=== PATIENT | female | born 1950 | race Caucasian/White ===

== ENCOUNTER 2020-07-20 07:43 | Outpatient (CLI) | payer MEDICARE, SELFPAY ==
--- NOTE | ~2020-07-20 | MM_ITS ---
EXAMINATION: MM screening florian BI w wicho HISTORY: Screening mammogram, family history of breast cancer in her sister. TECHNIQUE: Craniocaudal and mediolateral oblique 3-D tomosynthesis images were obtained and synthetic 2-D images were generated. CAD analysis was submitted and interpreted. COMPARISON: 06/26/2019, 06/12/2018, 06/08/2017 BREAST PARENCHYMAL COMPOSITION: There are scattered areas of fibroglandular density. FINDINGS: RIGHT BREAST: A mass is present in the middle third of the slightly inner breast 6 cm from the nipple . LEFT BREAST: There is no evidence of suspicious mass, calcification, or architectural distortion to s uggest malignancy. There has been no significant interval change. IMPRESSION: 1. Right breast mass 2. Additional mammographic views and possible breast ultrasound are recommended. BI-RADS Category 0: Incomplete: Needs additional imaging evaluation. Reviewed, dictated and finalized at location A. IMPRESSION: 1. Right breast mass 2. Additional mammographic views and possible breast ultrasound are recommended . BI-RADS Category 0: Incomplete: Needs additional imaging evaluation.
== END 2020-07-20 07:44 | disposition home or self-care (01) ==
LOC: CHSIMG 07:46
PROVIDERS: PCP Internal Medicine; Visit Provider Internal Medicine
DX: Z12.31 Encounter for screening mammogram for malignant neoplasm of breast (principal)
CPT/HCPCS: 77063; 77067

== ENCOUNTER 2020-07-23 09:30 | Outpatient (CLI) | payer MEDICARE, SELFPAY ==
--- NOTE | ~2020-07-23 | MMUS_ITS ---
EXAMINATION: MM diagnostic florian RT w wicho, US breast RT limited HISTORY: Right breast mass on screening mammogram TECHNIQUE: Additional 3-D tomosynthesis images of the right breast were performed and synthetic 2-D i mages were generated. CAD analysis was submitted and interpreted. High resolution limited right breas t ultrasound was performed. COMPARISON: 07/20/2020, 06/26/2019, 06/12/2018 FINDINGS: MAMMOGRAPHIC FINDINGS: There is a 7 mm x 4 mm oval, obscured, equal density mass in the middle third of the upper inner [address] at the 2:00 location 6 cm from the nipple. No associated architectural distortion or suspicious ca lcification are identified. ULTRASOUND: There is a 5 mm x 3 mm cyst at the 2:00 location 3 cm from the nipple corresponding to the mammograph ic finding in question. No suspicious cystic or solid mass is identified. IMPRESSION: 1. No mammographic or sonographic evidence of malignancy. 2. Recommend routine screening mammography in one year. BI-RADS Category 2: Benign finding(s). Reviewed, dictated and finalized at location A. IMPRESSION: 1. No mammographic or sonographic evidence of malignancy. 2. Recommend routine screening mammography in one year. BI-RADS Category 2: Benign finding(s).
== END 2020-07-23 09:31 | disposition home or self-care (01) ==
LOC: CHSIMG 09:32
PROVIDERS: PCP Internal Medicine; Visit Provider Internal Medicine
DX: R92.8 Other abnormal and inconclusive findings on diagnostic imaging of breast (principal)
CPT/HCPCS: 76642; 77061; 77065; G0279

== ENCOUNTER 2020-09-15 07:38 | Outpatient (CLI) | payer MEDICARE, SELFPAY ==
--- NOTE | ~2020-09-15 | US_ITS ---
US right upper quadrant INDICATION: Elevated liver enzymes PROCEDURE: Realtime right upper abdominal ultrasound. COMPARISON: No prior studies for comparison. FINDINGS: The pancreas is normal without focal mass or pancreatic ductal dilation. Liver echotexture is increased, consistent with fatty infiltration. There is normal directional flow in the portal ve in. Gallbladder is surgically absent. Common bile duct measures 4.4 mm. No sonographic Hilario's sign. IMPRESSION: 1: Hepatic steatosis. 2: Status post cholecystectomy. Reviewed, dictated and finalized at location B.
== END 2020-09-15 07:39 | disposition home or self-care (01) ==
LOC: CHSIMG 07:40
PROVIDERS: PCP Internal Medicine; Visit Provider Internal Medicine
DX: R94.5 Abnormal results of liver function studies (principal)
CPT/HCPCS: 76705

== ENCOUNTER 2020-09-16 12:24 | Outpatient (CLI) | payer MEDICARE, SELFPAY ==
--- NOTE | ~2020-09-16 | US_ITS ---
EXAMINATION: US thyroid DATE: 09/16/2020 12:53 INDICATION: Thyroid nodule. TECHNIQUE: Multiple ultrasound images of the thyroid were obtained. COMPARISON: None. FINDINGS: The right thyroid lobe measures 4.2 x 1.6 x 2.4 cm. The left thyroid lobe measures 4.6 x 1.3 x 1.4 c m. In the right thyroid lobe, there is an 11 mm solid, isoechoic, bnqua-xate-wcjz nodule with ill-de fined margin without echogenic foci (TI-RADS TR4). In the right thyroid lobe, there is a 2.3 cm solid , hypoechoic, eropc-swvn-baor nodule with ill-defined margin without echogenic foci (TR4). In the rig ht thyroid lobe, there is an 11 mm solid, hypoechoic, ktszjc-vhdx-hbmc nodule with ill-defined margin without echogenic foci (TR5). In the thyroid isthmus, there is a 19 mm solid, hypoechoic, wider-than -tall nodule smooth margin without echogenic foci (TR4). IMPRESSION: 1. Multinodular goiter. Ultrasound-guided fine-needle aspiration of the 2.3 cm right thyroid nodule a nd 11 mm TR5 right thyroid nodule is recommended. Reviewed, dictated and finalized at location A. IMPRESSION: 1. Multinodular goiter. Ultrasound-guided fine-needle aspiration of the 2.3 cm right thyroid nodule and 11 mm TR5 right thyroid nodule is recommended.
== END 2020-09-16 12:25 | disposition home or self-care (01) ==
LOC: CHSIMG 12:25
PROVIDERS: PCP Internal Medicine; Visit Provider Internal Medicine
DX: E04.1 Nontoxic single thyroid nodule (principal)
CPT/HCPCS: 76536

== ENCOUNTER 2020-09-30 13:01 | Outpatient (CLI) | payer MEDICARE, SELFPAY ==
--- NOTE | ~2020-09-30 | US_ITS ---
EXAMINATION: US FNA w image guidance DATE: 09/30/2020 14:04 INDICATION: Thyroid nodule TECHNIQUE: A time-out was performed to verify the patient's name, date of , and procedure to be performed . The procedure and its benefits and risks were discussed with the patient. Risks specifically discus sed included bleeding and infection. The patient understood the risks and agreed to proceed. The neck was prepped and draped in the usual sterile manner. 3 mL 1% lidocaine was used for local anesthesia . 5 passes were made with a 25G needle into the largest 2.4 cm TI-RADS 4 right thyroid nodule. Appr opriate needle location was documented with continuous sonographic guidance. The specimens were pass ed to the pet technologist in the room. A sterile bandage was applied. There were no immed iate complications. FINDINGS: Grayscale ultrasound images demonstrate biopsy needles advanced into a 2.4 x 1.4 cm right thyroid nod ule. On real-time sonography the smaller nodule at the inferior right thyroid lobe previously measure d as 11 mm and taller than wide appears to have been overestimated due to refraction artifact extendi ng posteriorly from the nodule. The nodule is instead 5 mm in maximal diameter and wider than tall co nsistent with a TI-RADS 4 nodule. IMPRESSION: 1. Successful ultrasound-guided fine needle aspiration of a 2.4 cm right thyroid nodule. 2. The second more inferior right thyroid nodule originally intended for biopsy appears to have been overestimated in height due to refraction artifact with maximal dimension of 5 mm and wider than tall decreasing the gradient to TI RADS 4 which does not meet criteria for biopsy and the planned biopsy was deferred. Reviewed, dictated and finalized at location A. ING FACILITIES MANAGER IMPRESSION: 1. Successful ultrasound-guided fine needle aspiration of a 2.4 cm right thyro id nodule. 2. The second more inferior right thyroid nodule originally intended for biopsy appears to have been overestimated in height due to refraction artifact with m aximal dimension of 5 mm and wider than tall decreasing the gradient to TI RADS 4 which does not meet criteria for biopsy and the planned biopsy was deferred.
== END 2020-09-30 13:02 | disposition home or self-care (01) ==
PROVIDERS: PCP Internal Medicine; Visit Provider Internal Medicine
DX: E04.1 Nontoxic single thyroid nodule (principal)
CPT/HCPCS: 10005; 88173; 88305

== ENCOUNTER 2021-07-29 14:31 | Outpatient (CLI) | payer MEDICARE, SELFPAY ==
--- NOTE | ~2021-07-29 | MM_ITS ---
EXAMINATION: MM screening florian BI w wicho HISTORY: Screening TECHNIQUE: Craniocaudal and mediolateral oblique 3-D tomosynthesis images were obtained and synthetic 2-D images were generated. CAD analysis was submitted and interpreted. COMPARISON: Comparison to multiple prior studies sequentially, with oldest reviewed study dated 05/23. BREAST PARENCHYMAL COMPOSITION: There are scattered areas of fibroglandular density. FINDINGS: There is no evidence of suspicious mass, calcification, or architectural distortion to sugg est malignancy in either breast. There has been no suspicious interval change. IMPRESSION: 1. No mammographic evidence of malignancy. 2. Recommend routine screening mammography in one year. BI-RADS Category 1: Negative Reviewed, dictated and finalized at location A.
== END 2021-07-29 14:32 | disposition home or self-care (01) ==
LOC: CHSLAB 14:33
PROVIDERS: PCP Internal Medicine; Visit Provider Internal Medicine
DX: Z12.31 Encounter for screening mammogram for malignant neoplasm of breast (principal)
CPT/HCPCS: 77063; 77067

== ENCOUNTER 2022-08-10 12:34 | Outpatient (CLI) | payer MEDICARE, SELFPAY ==
--- NOTE | ~2022-08-10 | MM_ITS ---
EXAMINATION: MM screening florian BI w wicho HISTORY: Screening mammogram TECHNIQUE: Craniocaudal and mediolateral oblique 3-D tomosynthesis images were obtained and synthetic 2-D images were generated. CAD analysis was submitted and interpreted. COMPARISON: 07/29/2021 bilateral screening mammogram 07/23/2020 right diagnostic mammogram and limited right breast ultrasound 07/16/2020, 06/26/2019 bilateral screening mammogram BREAST PARENCHYMAL COMPOSITION: There are scattered areas of fibroglandular density. FINDINGS: Stable mild fibroglandular asymmetry since 07/16/2020 and 06/26/2019 There is no evidence of suspicious mass, calcification, or architectural distortion to suggest malignancy in either breast. T here has been no suspicious interval change. IMPRESSION: 1. No mammographic evidence of malignancy. 2. Recommend routine screening mammography in one year. BI-RADS Category 2: Benign finding(s). Reviewed, dictated and finalized at location A.
== END 2022-08-10 12:35 | disposition home or self-care (01) ==
LOC: CHSIMG 12:36
PROVIDERS: PCP Internal Medicine; Visit Provider Internal Medicine
DX: Z12.31 Encounter for screening mammogram for malignant neoplasm of breast (principal)
CPT/HCPCS: 77063; 77067

== ENCOUNTER 2023-04-11 15:04 | Outpatient (CLI) | payer MEDICARE, SELFPAY ==
--- NOTE | ~2023-04-11 | XR_ITS ---
XR chest 2V 04/11/2023 15:25 Indication: Dyspnea. Hypertension. Procedure: 2 view chest Comparison: 08/17/2010 Findings: Heart size normal. No focal air space disease, pulmonary edema, pleural effusion or suspect ed pneumothorax. No acute osseous abnormality. Impression: 1: No acute cardiopulmonary disease. Reviewed, dictated and finalized at location L. Impression: 1: No acute cardiopulmonary disease.
== END 2023-04-11 15:05 | disposition home or self-care (01) ==
PROVIDERS: PCP Internal Medicine; Visit Provider Internal Medicine
DX: I10 Essential (primary) hypertension (principal); R06.00 Dyspnea, unspecified
CPT/HCPCS: 71046

== ENCOUNTER 2023-05-22 13:22 | Outpatient (CLI) | payer MEDICARE, SELFPAY ==
--- NOTE | 2023-05-22 13:30 | ECHO_ITS ---
Patient Info Name: Lety Morel Age: 72 years : 1950 Gender: Female Ht: 64 in Wt: 220 lbs BSA: 2.17 m2 HR: 75 bpm BP: 146 / 93 mmHg Heart Rhythm: Sinus Rhythm Technical Quality: Poor, Fair Exam Date: 05/22/2023 1:21 PM Exam Location: [facility] Patient Status: Outpatient Admit Date: 05/22/2023 Staff Ordering Physician: Amy Liriano MD Laundry Clerk: [facility] Attending Provider: Amy Liriano MD Referring Physician: Heri ROMERO; Exam Type: CA echo dop color flow w con Study Info Complete two-dimensional, color flow and Doppler transthoracic echocardiogram is performed with contrast to opacify the left ventricle and to improve the deliniation of the left ventricle endocardial borders. Contrast/Agitated Saline Contrast/Ag. Saline: Definity Amount: 3.00 ml Reason for Poor Study: poor echocardiographic windows Summary 1. Left ventricular chamber dimension is normal. 2. Definity contrast administered improved wall motion interpretation. 3. Left ventricular systolic function is normal, estimated at 60-65%. 4. There is mild concentric increased left ventricular wall thickness. 5. The left ventricular diastolic function is grade I diastolic dysfunction. 6. E/e' 7 is not elevated. 7. There is mild aortic valve sclerosis. 8. The mitral valve has mildly calcified annulus. 9. No pulmonary hypertension, estimated pulmonary arterial systolic pressure is 19 mmHg. Left Ventricle E/e' 7 is not elevated. Definity contrast administered improved wall motion interpretation. Left ventricular chamber dimension is normal. Left ventricular systolic function is normal, estimated at 60-65%. There is mild concentric increased left ventricular wall thickness. The left ventricular diastolic function is grade I diastolic dysfunction. Right Ventricle Right ventricular systolic function is normal and with normal TAPSE 2.4 cm. Right ventricular chamber dimension is moderately enlarged. Left Atria Left atrial chamber dimension is normal. Right Atria Right atrial chamber dimension is normal. Aortic Valve The aortic valve is trileaflet. There is mild aortic valve sclerosis. There is no aortic valve stenosis. There is no aortic valve regurgitation. Pulmonic Valve There is no pulmonic regurgitation. Mitral Valve The mitral valve has mildly calcified annulus. There is no mitral valve stenosis. There is no mitral valve regurgitation. Tricuspid Valve There is no tricuspid valve regurgitation. No pulmonary hypertension, estimated pulmonary arterial systolic pressure is 19 mmHg. Pericardium/Pleural There is no pericardial effusion. Inferior Vena Cava Normal inferior vena cava with >50% collapse upon inspiration consistent with normal right atrial pressure, 5 mmHg. Aorta The aortic root size at the sinus of Valsalva is normal. Left Ventricular Outflow Tract Name Value Normal LVOT 2D LVOT Diameter 1.92 cm LVOT Doppler LVOT Peak Velocity 83.35 cm/s LVOT Peak Gradient 3 mmHg LVOT Mean Gradient 1 mmHg LVOT VTI 14.73 cm LVOT VTI/AV VTI Ratio
== END 2023-05-22 13:23 | disposition home or self-care (01) ==
LOC: CHSIMG 13:24
PROVIDERS: PCP Internal Medicine; Visit Provider Internal Medicine
DX: I35.8 Other nonrheumatic aortic valve disorders (principal)
CPT/HCPCS: C8929

== ENCOUNTER 2023-08-29 14:02 | Outpatient (CLI) | payer MEDICARE, SELFPAY ==
[2023-08-29 14:17] LABS: Hematocrit 36.2 % (35.0-42.0); Hemoglobin 11.7 g/dL (11.7-13.8); Mean Corpuscular HGB Conc 32.3 g/dL (32.0-36.0); Mean Corpuscular Hemoglobin 30.5 pg (27.0-31.0); Mean Corpuscular Volume 94.3 fL (78.0-102.0); Platelet Count Result 197 K/mm3 (150-420); Red Blood Count 3.84 M/mm3 (4.20-5.40); Red Cell Distribution Width 12.7 % (11.6-14.4); White Blood Count 3.8 K/mm3 (4.8-10.8)
[2023-08-29 14:44] LABS: Strep Group A RT-PCR NOT DETECTED (Negative)
[2023-08-29 14:52] LABS: Influenza A QL RT-PCR Negative (Negative); Influenza B QL RT-PCR Negative (Negative); SARS-CoV-2 RNA PCR Negative (Negative)
[2023-08-29 15:06] LABS: Band Neutrophils Percent 0 % (0-6); Basophils Percent Manual 0 % (0-1); Eosinophils Absolute Manual 0.07 K/mm3 (0.02-0.5); Eosinophils Percent Manual 2 % (1-6); Lymphocytes Absolute Manual 1.17 K/mm3 (1.1-4.5); Lymphocytes Percent Manual 31 % (18-44); Monocytes Absolute Manual 0.19 K/mm3 (0.1-0.90); Monocytes Percent Manual 5 % (3-9); Neutrophils Absolute Manual 2.35 K/mm3 (1.7-7.2); Neutrophils Percent Manual 62 % (46-73); Platelet Estimate Adequate (Adequate); Total Cells Counted 100
== END 2023-08-29 14:03 | disposition home or self-care (01) ==
LOC: CHSLAB 14:04
PROVIDERS: PCP Internal Medicine; Visit Provider Internal Medicine
DX: J06.9 Acute upper respiratory infection, unspecified (principal)
CPT/HCPCS: 36415; 85025; 87636; 87651

== ENCOUNTER 2024-04-18 13:12 | Outpatient (CLI) | payer MEDICARE, SELFPAY ==
--- NOTE | ~2024-04-18 | DEXA_ITS ---
? Bone Density Report? Name:? EVA YOON Patient ID:??? [id number] Age:? 73 Sex:? Female Ethnicity:? White Date of : 1950 Indication: postmenopausal; screening for osteoporosis; height loss; hysterectomy; Referring Provider: Amy Liriano Study: Bone densitometry was performed. Exam Date: April 18, 2024 Accession number: [id number] Bone Density: Region? BMD??? T-score? Z-score? ?Classification AP Spine(L1-L4)? 1.269??? 2.0?4.3? Normal Femoral Neck (Left)? 0.796?? -0.5? 1.5? Normal Total Hip (Left)? 0.978??? 0.3? 1.9? Normal Femoral Neck (Right)? 0.866??? 0.2? 2.1? Normal Total Hip (Right)? 0.972??? 0.2? 1.9? Normal Femoral Neck Mean? 0.831?? -0.2? 1.8? Normal Total Hip Mean? 0.975??? 0.3? 1.9? Normal World Health Organization criteria for BMD impression classify patients as: Normal (T-score at or above -1.0), Osteopenia (T-score between -1.0 and -2.5), or Osteoporosis (T-score at or below -2.5). 10-year Fracture Risk: FRAX not reported because: ? All T-scores for Spine Total, Hip Total, Femoral Neck at or above -1.0 Clinical Information Provided by Patient: Has used the following medications: Vitamin D Has the following medical conditions: Hysterectomy Patient maximum height was 64 Menopause Age: 46 No regular weight bearing exercise Drinks caffeinated beverages Onset of menses at age 13 Number of children 3 Impression: The patient has normal bone mass. Discussion: BONE DENSITY IS ABOVE THE MINIMUM DESIRABLE LEVEL AT ALL SKELETAL SITES TESTED. This patient?s bone mineral density is above the minimum desirable level (T- score -1.0 or better) at all sites measured. The patient should follow a healthful lifestyle (good nutrition with adequate calcium and vitamin D, and appropriate weight-bearing exercise). Follow-Up: Consider repeating this study in 5 years or sooner if there is some new clinical indication. Reported by: Dr. Ritesh Morase on 04/18/2024 2:47:00 PM. LARRY
--- NOTE | ~2024-04-18 | MM_ITS ---
EXAMINATION: MM screening florian BI w wicho HISTORY: Screening TECHNIQUE: Craniocaudal and mediolateral oblique 3-D tomosynthesis images were obtained and synthetic 2-D images were generated. CAD analysis was submitted and interpreted. COMPARISON: Comparison to multiple prior studies sequentially, with oldest reviewed study dated 07/20. BREAST PARENCHYMAL COMPOSITION: Not dense: There are scattered areas of fibroglandular density. FINDINGS: There is no evidence of suspicious mass, calcification, or architectural distortion to sugg est malignancy in either breast. There has been no suspicious interval change. IMPRESSION: 1. No mammographic evidence of malignancy. 2. Recommend routine screening mammography in one year. BI-RADS Category 1: Negative Reviewed, dictated and finalized at location A.
== END 2024-04-18 13:13 | disposition home or self-care (01) ==
LOC: CHSIMG 13:13
PROVIDERS: PCP Internal Medicine; Visit Provider Internal Medicine
DX: Z12.31 Encounter for screening mammogram for malignant neoplasm of breast (principal); Z78.0 Asymptomatic menopausal state
CPT/HCPCS: 77063; 77067; 77080

== ENCOUNTER 2024-06-04 01:25 | Day surgery (SDC) | payer MEDICARE, SELFPAY ==
[2024-05-16 12:32] VITALS: BMI 40.8
[2024-06-04 12:07] VITALS: BP 152/77; PULSE 97; RESP 16; TEMP 36.1; O2SAT 100
[2024-06-04] MEDS: LACTATED RINGERS 1,000 ML 150 ML IV CONT (12:30)
--- NOTE | 2024-06-04 12:39 | WPDANESEPPF ---
Anes - Initial Pre Proc Eval Procedure: Operation Date: 06/04/24 13:00 Proposed Procedures p Screening Colonoscopy - Ernesto Lal DO Date/Time: 06/04/24 12:39 Surgeon: Ernesto Lal DO Pre Op Diagnosis: Screening for malignant neoplasm of colon Patient Data Age: 73 Gender: F Height: 1.6 m Weight: 104.3 kg Last Vital Signs Temp 97 F L 06/04/24 12:07 Pulse 97 06/04/24 12:07 Resp 16 06/04/24 12:07 BP 152/77 H 06/04/24 12:07 Pulse Ox 100 06/04/24 12:07 O2 Del Method Room Air 06/04/24 12:07 Allergies Allergy/AdvReac Type Severity Reaction Status Date / Time No Known Allergies Allergy Mild Verified 06/04/24 12:06 Home Medications Medication Instructions Recorded Confirmed Type ergocalciferol (vitamin D2) 1,250 1,250 mcg PO WEEKLY 06/05/23 05/16/24 History mcg (50,000 unit) capsule hydrocodone bitartrate 10 mg 10 mg PO Q12H 06/05/23 06/04/24 History capsule, oral only, extended rel 12 hr [id number] tablet 1 tablet PO DAILY 06/05/23 05/16/24 History lisinopril 20 mg tablet 20 mg PO BID 06/05/23 05/16/24 History lovastatin 10 mg tablet 10 mg PO DAILY 06/05/23 05/16/24 History omeprazole 20 mg capsule,delayed 20 mg PO DAILY 06/05/23 05/16/24 History release trazodone 50 mg tablet 50 mg PO QHS PRN Pain 06/05/23 05/16/24 History venlafaxine 75 mg tablet 75 mg PO DAILY 06/05/23 05/16/24 History amlodipine 5 mg tablet 10 mg PO DAILY 01/08/24 05/16/24 History Patient hx anesthesia problems: none Family hx anesthesia problems: none Results Review: All pre-operative results and documents have been reviewed as part of the pre-operative evaluation. [facility] Social History Social History (Updated 01/08/24 @ 13:06 by Lanette Hannon [facility]) Smoking status: Never smoker Substance use type: does not use Do You Feel Safe in your Home?: Yes Lack of Transportation: No Lack of Food: Never True Current Housing: I Have Housing Concerned About Future Housing: No Difficulty Paying Gas/Electric Bills: No Difficulty Paying for Meds: No Currently Unemployed: No Education: High School Diploma/GED Difficulty w/ Childcare or Family Care: No Living arrangements: alone Spiritual care concerns: No Anes - Eval Final PreProcedure Day of Procedure 06/04/24 12:39 Patient weight: morbidly obese Heart: regular rate and rhythm Lungs: clear to auscultation Airway: Mallampati scale class II Neurological: alert and oriented Last oral intake: >/= 8 hours ASA classification: III Emergent: no Anesthetic plan: proceed Anesthesia type and monitoring: general GIVS and standard monitoring Results Review: All pre-operative results and documents have been reviewed as part of the pre-operative evaluation. Informed Consent: The patient's anesthetic plan and its attendant risks and benefits were discussed with the patient/family/POA. Questions were solicited and answers provided to the satisfaction of the patient/family/POA.
--- NOTE | 2024-06-04 12:54 | PM.IMHP ---
H&P: HPI History of Present Illness Date/Time: 06/04/24 12:54 Chief Complaint: screening for colorectal cancer Narrative: this is a 73-year-old woman who presents for colonoscopy. Her last colonoscopy was 10 years ago. She denies any hematochezia or melena. She denies family history of colon cancer. Review of Systems Review of Systems: All systems reviewed & are unremarkable except as noted in HPI and below Constitutional: Constitutional: Denies chills, Denies fever(s), Denies headache(s) and Denies weight loss Eyes: Eyes: Denies change in vision ENT: Denies dizziness, Denies headache(s), Denies neck mass and Denies throat swelling Cardiovascular: Cardiovascular: Denies chest pain, Denies lightheadedness and Denies dyspnea Respiratory: Respiratory: Denies cough, Denies dyspnea and Denies wheezing Gastrointestinal: Gastrointestinal: Denies abdominal pain, Denies change in bowel habits, Denies nausea and Denies vomiting Genitourinary: Genitourinary: Denies hematuria and Denies dysuria Musculoskeletal: Musculoskeletal: Reports as per HPI Integumentary/Breasts: Skin/Breast: Reports as per HPI Neurologic: Denies dizziness and Denies headache(s) Allergic/Immunologic: Allergic/Immunologic: Denies throat swelling and Denies wheezing [facility] Social History Social History (Updated 01/08/24 @ 13:06 by Lanette Hannon, [facility]) Smoking status: Never smoker Substance use type: does not use Do You Feel Safe in your Home?: Yes Lack of Transportation: No Lack of Food: Never True Current Housing: I Have Housing Concerned About Future Housing: No Difficulty Paying Gas/Electric Bills: No Difficulty Paying for Meds: No Currently Unemployed: No Education: High School Diploma/GED Difficulty w/ Childcare or Family Care: No Living arrangements: alone Spiritual care concerns: No Meds Home Medications and Allergies Home Medications Medication Instructions Recorded Confirmed Type ergocalciferol (vitamin D2) 1,250 1,250 mcg PO WEEKLY 06/05/23 05/16/24 History mcg (50,000 unit) capsule hydrocodone bitartrate 10 mg 10 mg PO Q12H 06/05/23 06/04/24 History capsule, oral only, extended rel 12 hr [id number] tablet 1 tablet PO DAILY 06/05/23 05/16/24 History lisinopril 20 mg tablet 20 mg PO BID 06/05/23 05/16/24 History lovastatin 10 mg tablet 10 mg PO DAILY 06/05/23 05/16/24 History omeprazole 20 mg capsule,delayed 20 mg PO DAILY 06/05/23 05/16/24 History release trazodone 50 mg tablet 50 mg PO QHS PRN Pain 06/05/23 05/16/24 History venlafaxine 75 mg tablet 75 mg PO DAILY 06/05/23 05/16/24 History amlodipine 5 mg tablet 10 mg PO DAILY 01/08/24 05/16/24 History Allergies Allergy/AdvReac Type Severity Reaction Status Date / Time No Known Allergies Allergy Mild Verified 06/04/24 12:06 Vital Signs Vital Signs - 24 hr 06/04/24 12:07 Temperature 36.1 C L Pulse Rate 97 Respiratory Rate 16 Blood Pressure 152/77 H Pulse Oximetry 100 Oxygen Delivery Room Air Exam Const: General: no acute distress and alert Orientation/consciousness: patient oriented x3 HENMT: Head: normocephalic and atraumatic Ears: hearing grossly normal bilaterally Face/Nose/Sinus: Normal nares present Mouth: Yes Normal oral and palatal mucosa present Eyes: Periorbital: periorbital findings normal Sclera: sclerae normal EOM: EOMs intact bilaterally Neck: Neck: normal visual inspection, no lymphadenopathy and trachea midline Chest: Chest palpation & inspection: normal inspection of the chest Resp: Effort & Inspection: normal respiratory effort Auscultation: clear to auscultation bilaterally Cardio: Jugular venous distension: no JVD Rate: regular rate Rhythm: regular rhythm Heart sounds: S1 normal heart sound present and S2 normal heart sound present Peripheral pulses: Peripheral pulses 2+ throughout GI: Inspection: normal to inspection GI Palp: Yes Soft to palpation, No Tenderness t
[2024-06-04 13:32] VITALS: BP 93/56; PULSE 83; RESP 21; O2SAT 100
[2024-06-04 13:42] VITALS: BP 120/46; PULSE 70; RESP 18; O2SAT 100
[2024-06-04 13:52] VITALS: BP 119/51; PULSE 72; RESP 18; O2SAT 100
== END 2024-06-04 14:05 | disposition home or self-care (01) ==
PROVIDERS: PCP Internal Medicine; Visit Provider Surgery
PROC: 0DJD8ZZ Inspection of Lower Intestinal Tract, Via Natural or Artificial Opening Endoscopic (ICD-10-PCS; CPT 45378; principal; 2024-06-04 13:00)
DX: Z12.11 Encounter for screening for malignant neoplasm of colon (principal)
CPT/HCPCS: G0121; J2704; J7120

== ENCOUNTER 2025-10-10 13:19 | Outpatient (CLI) | payer MEDICARE, SELFPAY ==
--- NOTE | ~2025-10-10 | MM_ITS ---
EXAMINATION: MM screening [facility] BI w wicho HISTORY: Screening TECHNIQUE: Craniocaudal and mediolateral oblique 3-D tomosynthesis images were obtained and synthetic 2-D images were generated. CAD analysis was submitted and interpreted. COMPARISON: Comparison to multiple prior studies sequentially, with oldest reviewed study dated 07/29/2021. BREAST PARENCHYMAL COMPOSITION: Not dense: There are scattered areas of fibroglandular density. FINDINGS: There is no evidence of suspicious mass, calcification, or architectural distortion to suggest malignancy in either breast. There has been no suspicious interval change. IMPRESSION: 1. No mammographic evidence of malignancy. 2. Recommend routine screening mammography in one year. BI-RADS Category 1: Negative Reviewed, dictated and finalized at location B. MITE PACKING MACHINE OPERATOR
== END 2025-10-10 13:20 | disposition home or self-care (01) ==
LOC: CHSIMG 13:20
PROVIDERS: PCP Internal Medicine; Visit Provider Internal Medicine
DX: Z12.31 Encounter for screening mammogram for malignant neoplasm of breast (principal)
CPT/HCPCS: 77063; 77067

== ENCOUNTER 2025-11-12 08:45 | Outpatient (CLI) | payer MEDICARE, SELFPAY ==
--- NOTE | ~2025-11-12 | CT_ITS ---
EXAMINATION: CT abdomen pelvis wo/w con DATE: 11/12/2025 09:53 INDICATION: Hematuria TECHNIQUE: Computed tomography (CT) of the abdomen and pelvis was performed without intravenous contrast. CT of the abdomen and pelvis was then performed with a total of 130 mL Omnipaque-350 intravenous contrast using a double-bolus technique for simultaneous opacification of the renal parenchyma and renal collecting system. Automated exposure control and iterative reconstruction technique were employed. The dose-length product was 1363.69 mGy-cm. COMPARISON: 03/20/2014 FINDINGS: Small pneumatocele in the right lower lobe. Calcified right lower lobe nodules consistent with old granulomatous disease. Heart size is normal. Atherosclerotic coronary artery calcifications and aortic valve calcification. No pericardial or pleural effusion. Cholecystectomy clips at the gallbladder fossa. Subcentimeter low-attenuation cyst in the right hepatic lobe. Spleen, pancreas and bilateral adrenal glands are normal. Symmetric bilateral renal parenchymal enhancement. No urolithiasis or hydronephrosis. The bilateral renal collecting systems and ureters are opacified in their near entirety with no evident filling defects or urothelial irregularities. Tiny focus of intraluminal gas within the bladder. There is a diverticulum at the left posterior aspect of the bladder. Stranding in the fat surrounding the bladder suggestive of cystitis. Status post appendectomy with surgical clips at the tip the cecum. Bowels are otherwise unremarkable. No free intraperitoneal gas or fluid. No pathologically enlarged abdominal or pelvic lymphadenopathy. Severe lumbar spondylosis. IMPRESSION: 1. Tiny focus of gas within the bladder which demonstrates some surrounding stranding raising concern for cystitis. Correlate with urinalysis. No urolithiasis or evident urothelial irregularities at the bilateral ureters and renal collecting systems. Reviewed, dictated and finalized at location A. [employer] IMPRESSION: 1. Tiny focus of gas within the bladder which demonstrates some surrounding str anding raising concern for cystitis. Correlate with urinalysis. No urolithiasis or evident urothelial irregularities at the bilateral ureters and renal collec ting systems.
[2025-11-12 09:14] LABS: Estimated Glomerular Filt Rate > 60
== END 2025-11-12 08:46 | disposition home or self-care (01) ==
LOC: CHSIMG 08:48
PROVIDERS: PCP Internal Medicine; Visit Provider Internal Medicine
DX: R31.9 Hematuria, unspecified (principal)
CPT/HCPCS: 74178; Q9967